=== PATIENT | female | born 1950 | race Two or more races ===

== ENCOUNTER → 2018-01-03 | Outpatient (CLI) | payer MEDICARE, MEDICAID ==
[~2018-01-03] VITALS: Ht 147.3 cm; Wt 65.3 kg
== END | disposition home or self-care (01) ==
LOC: Rad HDHVI 09:09
PROVIDERS: ATTEND Internal Medicine Cardiovascular Disease
DX: R07.89 Other chest pain (principal); E11.9 Type 2 diabetes mellitus without complications; E78.00 Pure hypercholesterolemia, unspecified
CPT/HCPCS: 78452; 93017; 93306; 96374; A9500

== ENCOUNTER → 2018-02-19 | Outpatient (CLI) | payer OTHER, MEDICAID ==
[~2018-02-19] MED LIST: ALEN35TA18 PO; ASPI81TA27 PO; BUSP5TAB51 PO; CALC600T57 PO; CHOL100079 PO; GLIP-116 PO; LISI-646 PO; METF-371 PO; OMEP20TA PO; SIMV-13 PO; SITA50TA PO; TRAM50TA2 PO
[2018-02-19 11:10] VITALS: BP 131/60
[2018-02-19 11:30] VITALS: BP 129/65
[2018-02-19 16:08] LABS: Basophils # (auto) 0.1 uL; Basophils % (auto) 0.9 % (0.0-2.0); Eosinophils # (auto) 0.2 uL; Eosinophils % (auto) 2.8 % (0.0-7.0); Hemoglobin 11.6 g/dL (12.2-16.2); Lymphocytes # (auto) 1.8 uL; Lymphocytes % (auto) 24.4 % (10.0-50.0); Mean Corpuscular Hemoglobin 27.7 pg (28.0-32.0); Mean Corpuscular Hgb Conc. 32.2 g/dL (32.0-36.0); Mean Corpuscular Volume 86.1 fL (80.0-100.0); Monocytes # (auto) 0.5 uL; Monocytes % (auto) 6.2 % (0.0-12.0); Neutrophils % (auto) 65.7 % (37.0-80.0); Nucleated Red Blood Cells % 0.2 %; Platelet Count (auto) 222 10^3/uL (140-450); Red Blood Cells 4.18 10^6/uL (4.0-5.20); Red Cell Distribution Width 15.3 % (11.8-14.3); White Blood Cell 7.5 10^3/uL (4.4-10.8)
[2018-02-19 16:15] LABS: BUN/Creatinine Ratio 23.2; Calcium 8.2 mg/dL (8.5-10.1); Potassium 4.1 mmol/L (3.5-5.1)
[2018-02-19 16:19] LABS: INR 0.95 (0.9-1.15); Partial Thromboplastin Time 28.4 sec (22.64-33.71); Prothrombin Time 10.4 sec (9.37-12.3)
== END | disposition home or self-care (01) ==
LOC: Rad HDHVI 10:56
PROVIDERS: ATTEND Internal Medicine Cardiovascular Disease
DX: Z01.818 Encounter for other preprocedural examination (principal); I70.0 Atherosclerosis of aorta; E11.9 Type 2 diabetes mellitus without complications; E78.00 Pure hypercholesterolemia, unspecified; I10 Essential (primary) hypertension
CPT/HCPCS: 36415; 71046; 80048; 85025; 85610; 85730; 93005; G0463

== ENCOUNTER 2018-02-21 09:30 | Day surgery (SDC) | payer OTHER, MEDICAID ==
[~2018-02-21] VITALS: Ht 147.3 cm; Wt 64.4 kg
[2018-02-21] MEDS ORDERED: IOHEXOL 350 MG/ML 100ML IJ ONE (10:47)
[2018-02-21] MEDS ORDERED: LIDOCAINE 2%HCL (LOCAL ANESTH.) INJ 20ML MDV ONE (10:48)
[2018-02-21] MEDS ORDERED: ANGIOMAX 250 MG VIAL IV ONE (10:50)
[2018-02-21] MEDS ORDERED: SODIUM CHL 0.9% 0 ML ONE (10:50)
[2018-02-21] MEDS ORDERED: MIDAZOLAM HCL 1MG/1ML-2 ML VIAL ONE (10:50)
[2018-02-21] MEDS ORDERED: fentaNYL CITRATE 100 MCG/2 ML VL ONE (10:50)
== END 2018-02-21 13:30 | disposition home or self-care (01) ==
LOC: CATH 09:30
PROVIDERS: ATTEND Internal Medicine Cardiovascular Disease
DX: R94.39 Abnormal result of other cardiovascular function study (principal); I10 Essential (primary) hypertension; E78.5 Hyperlipidemia, unspecified; J45.909 Unspecified asthma, uncomplicated; E11.9 Type 2 diabetes mellitus without complications
CPT/HCPCS: C1760; C1894; J1644; J2250; J3010; J7030; Q9967; 93458; 99152

== ENCOUNTER → 2021-12-15 | Outpatient (CLI) | payer MEDICARE, OTHER ==
[~2021-12-15] VITALS: Ht 147.3 cm; Wt 63.0 kg
[~2021-12-15] MED LIST changes: +ASPI-543 PO; -ASPI81TA27 PO; +CALC1TAB92 PO; -CALC600T57 PO; -GLIP-116 PO; +GLIP10TA9 PO; -LISI-646 PO; +LISI20TA28 PO
== END | disposition home or self-care (01) ==
LOC: Rad HDHVI 12:28
PROVIDERS: ATTEND Internal Medicine Cardiovascular Disease
DX: I10 Essential (primary) hypertension (principal); E78.5 Hyperlipidemia, unspecified; E11.9 Type 2 diabetes mellitus without complications
CPT/HCPCS: 78452; 93017; 96374; A9500

== ENCOUNTER → 2021-12-20 | Outpatient (CLI) | payer MEDICARE | END | disposition home or self-care (01) | LOC: Rad HDHVI 11:00 | PROVIDERS: ATTEND Internal Medicine Cardiovascular Disease | DX: I05.9 Rheumatic mitral valve disease, unspecified (principal); R07.89 Other chest pain; R00.2 Palpitations | CPT/HCPCS: 93306 ==